=== PATIENT | male | born 1950 | race African-American/Black ===

== ENCOUNTER 2018-11-01 20:30 | Inpatient (IN) | payer BC, MEDICARE ==
[~2018-11-01] VITALS: Ht 170.2 cm; Wt 88.5 kg
[2018-11-01 21:31] LABS: BASOPHILS % 0.3 % (0.0-2.0); EOSINOPHILS % 2.2 % (0.0-5.0); HEMATOCRIT. 41.3 % (42.0-52.0); HEMOGLOBIN. 13.4 g/dL (14.0-18.0); LYMPHOCYTES % 29.6 % (20.0-50.0); MEAN CORPUSCULAR HEMOGLOBIN 22.8 pg (28.0-32.0); MEAN CORPUSCULAR VOLUME 70.5 fL (80.0-94.0); MEAN PLATELET VOLUME 7.8 fl (7.4-10.4); MONOCYTES % 8.2 % (2.0-8.0); NEUTROPHILS % 59.7 % (40.0-76.0); PLATELET 219 x1000/uL (130-400); RED BLOOD CELL COUNT 5.86 mill/uL (4.7-6.1); RED CELL DISTRIBUTION WIDTH 15.6 % (11.6-14.6)
[2018-11-01 21:36] LABS: CHLORIDE 103 mEq/L (98-107)
[2018-11-01 21:41] LABS: PROTHROMBIN TIME 10.2 sec (9.1-11.1)
[2018-11-01] MEDS ORDERED: ASPIRIN 325MG TABLET PO ONE (22:15)
[2018-11-02] MEDS ORDERED: SODIUM CHLORIDE 0.45% 1,000 ML IV SCH (09:16)
[2018-11-02] MEDS ORDERED: NA PHOS,M-B/NA PHOS,DI-BA ENEMA 118ML PR PRN (09:30)
[2018-11-02] MEDS ORDERED: HYDROCODONE/ACETAMINOPHEN 5/325MG TABLET PO PRN (09:30)
[2018-11-02] MEDS ORDERED: IPRATROPIUM/ALBUTEROL 0.5-3(2.5)MG/3ML NEB INH PRN (09:30)
[2018-11-02] MEDS ORDERED: MAGNESIUM/ALUMINUM HYDROXIDE/SIMETHICONE 30ML UDC PO PRN (09:30)
[2018-11-02] MEDS ORDERED: LORAZEPAM 2MG/ML CPJ IV PRN (09:30)
[2018-11-02] MEDS ORDERED: GUAIFENESIN 200MG/10ML SUGAR FREE UDC PO PRN (09:30)
[2018-11-02] MEDS ORDERED: DIPHENHYDRAMINE 50MG/ML VIAL IV PRN (09:30)
[2018-11-02] MEDS ORDERED: CLONIDINE 0.1MG TABLET PO PRN (09:30)
[2018-11-02] MEDS ORDERED: HYDROMORPHONE HCL/PF 2MG/ML CPJ IV PRN (09:30)
[2018-11-02] MEDS ORDERED: ACETAMINOPHEN 325MG TABLET PO PRN (09:30)
[2018-11-02] MEDS ORDERED: DOCUSATE SODIUM 100MG CAPSULE PO PRN (09:30)
[2018-11-02] MEDS ORDERED: ONDANSETRON HCL 4MG/2ML INJ IV PRN (09:30)
[2018-11-02 11:26] LABS: CLARITY URINE CLEAR (CLEAR); COLOR URINE YELLOW (YELLOW); KETONES URINE NEGATIVE (NEGATIVE); LEUKOCYTE ESTERASE URINE NEGATIVE (NEGATIVE); NITRITE URINE NEGATIVE (NEGATIVE); OCCULT BLOOD URINE NEGATIVE (NEGATIVE); PH URINE 7.5 (4.5-8.0); PROTEIN URINE NEGATIVE (NEGATIVE); SPECIFIC GRAVITY URINE 1.011 (1.005-1.030); UROBILINOGEN URINE 0.2 E.U./dL (0.2-1.0)
[2018-11-02 12:00] VITALS: BP 151/94
[2018-11-02] MEDS ORDERED: DEXTROSE 50% WATER 50ML SYRINGE IV PRN (12:00)
[2018-11-02] MEDS ORDERED: VITA400C19 PO (12:09)
[2018-11-02] MEDS ORDERED: ASPI-1159 PO (12:09)
[2018-11-02] MEDS ORDERED: MULT-1146 PO (12:09)
[2018-11-02] MEDS ORDERED: CHOL200074 PO (12:09)
[2018-11-02] MEDS ORDERED: POTA10CA42 PO (12:09)
[2018-11-02] MEDS ORDERED: METF-414 PO (12:09)
[2018-11-02] MEDS ORDERED: HYDR25TA PO (12:09)
[2018-11-02] MEDS: INSULIN LISPRO 100 UNITS/ML SUBCUT SCH ×3 (12:15→21:00)
[2018-11-02] MEDS ORDERED: ENOXAPARIN 40MG/0.4ML SYR SUBCUT SCH (12:30)
[2018-11-02 13:46] LABS: CHLORIDE 103 mEq/L (98-107)
[2018-11-02 16:00] VITALS: BP 152/98
[2018-11-02 16:39] VITALS: BP 145/56
[2018-11-02] MEDS: BLOOD SUGAR DIAGNOSTIC STRIP TEST SCH ×2 (16:45→21:24)
[2018-11-02] MEDS ORDERED: MEDICATION NOT ON FORMULARY EA (Metformin Hcl 1 TAB) PO SCH (19:45)
[2018-11-02 20:00] VITALS: BP 129/76
[2018-11-02] MEDS: METFORMIN HCL 500MG TABLET PO SCH (21:24)
[2018-11-02] MEDS: HYDROCHLOROTHIAZIDE 25MG TABLET PO SCH (21:24)
[2018-11-03] MEDS: BLOOD SUGAR DIAGNOSTIC STRIP TEST SCH (06:21)
[2018-11-03 06:28] LABS: BASOPHILS % 0.2 % (0.0-2.0); EOSINOPHILS % 3.8 % (0.0-5.0); LYMPHOCYTES % 32.3 % (20.0-50.0); MEAN CORPUSCULAR HEMOGLOBIN 22.6 pg (28.0-32.0); MEAN CORPUSCULAR VOLUME 70.8 fL (80.0-94.0); MONOCYTES % 10.7 % (2.0-8.0); PLATELET 229 x1000/uL (130-400); RED BLOOD CELL COUNT 6.21 mill/uL (4.7-6.1); RED CELL DISTRIBUTION WIDTH 15.7 % (11.6-14.6)
[2018-11-03] MEDS: METFORMIN HCL 500MG TABLET PO SCH (06:30)
[2018-11-03] MEDS: INSULIN LISPRO 100 UNITS/ML SUBCUT SCH (06:46)
[2018-11-03 07:05] LABS: CHLORIDE 103 mEq/L (98-107)
[2018-11-03 07:19] LABS: T4 FREE 0.92 ng/dL (0.76-1.46)
[2018-11-03 07:26] LABS: LDL CHOLESTEROL 82 mg/dL (5-100)
[2018-11-03 07:28] LABS: HDL CHOLESTEROL 49 mg/dL (40-59)
[2018-11-03] MEDS ORDERED: ASPIRIN 81MG EC TABLET PO SCH (09:00)
[2018-11-03] MEDS: HYDROCHLOROTHIAZIDE 25MG TABLET PO SCH (09:44)
[2018-11-03 09:55] VITALS: BP 134/90
== END 2018-11-03 11:00 | disposition home or self-care (01) | DRG 64 ==
LOC: ER 21:35 → 5WST 22:48 → EDBEDREQTM 22:51 → EDBEDREQ 22:51 → ENRESERV 11-02 10:23
PROVIDERS: ADMIT Internal Medicine; ATTEND Internal Medicine
DX: I63.9 Cerebral infarction, unspecified (principal); G93.41 Metabolic encephalopathy; E46 Unspecified protein-calorie malnutrition; E11.9 Type 2 diabetes mellitus without complications; E78.00 Pure hypercholesterolemia, unspecified; R26.2 Difficulty in walking, not elsewhere classified; G90.8 Other disorders of autonomic nervous system; E86.0 Dehydration; I10 Essential (primary) hypertension; Z79.82 Long term (current) use of aspirin; Z79.84 Long term (current) use of oral hypoglycemic drugs; Z79.899 Other long term (current) drug therapy; Z68.30 Body mass index [BMI] 30.0-30.9, adult
CPT/HCPCS: 36415; 71045; 80048; 80061; 82962; 84439; 84443; 84484; 93005; 96374; 99285; J1650; J1815